=== PATIENT | male | born 1975 | race Caucasian/White ===

== ENCOUNTER → 2018-09-17 | Outpatient (CLI) | payer BC | LOC: BMCIMAGING 10:46 | PROVIDERS: ATTEND Family Medicine | DX: M79.671 Pain in right foot (principal) ==

== ENCOUNTER → 2018-10-11 | Outpatient (CLI) | payer BC | LOC: BMCIMAGING 09:01 ==

== ENCOUNTER → 2018-11-01 | Outpatient (CLI) | payer BC | LOC: BMCIMAGING 08:37 ==